=== PATIENT | male | born 1950 | race Caucasian/White ===

== ENCOUNTER 2024-01-21 11:25 | Outpatient (OUT) | payer MEDICARE, OTHER, SELFPAY ==
[2024-01-21 12:12] LABS: Alanine Aminotransferase 62 U/L (16-63); Albumin Globulin Ratio 0.7; Albumin Level 2.8 g/dL (3.4-5.0); Alkaline Phosphatase 124 U/L (46-116); Aspartate Amino Transferase 39 U/L (15-37); Bilirubin Total 2.8 mg/dL (0.2-1.0); Globulin 4.1 g/dL; Total Protein 6.9 g/dL (6.4-8.2)
[2024-01-21 12:25] LABS: Bilirubin Direct 1.6 mg/dL (0.0-0.2)
== END 2024-01-21 11:26 | disposition home or self-care (01) ==
PROVIDERS: PCP Nurse Practitioner Family
DX: K80.50 Calculus of bile duct without cholangitis or cholecystitis without obstruction (principal)
CPT/HCPCS: 36415; 80076